=== PATIENT | female | born 1985 | race American Indian/Alaskan Native ===

== ENCOUNTER 2017-01-16 01:03 | Emergency (ER) | payer OTHER ==
--- NOTE | 2017-01-16 03:24 | Emergency Department Report ---
HPI - General Chief Complaint: Dental/Oral Time Seen by Provider: 01/16/17 03:13 - HPI HPI: Patient here reported that she's having toothache to left upper tooth at the back. It she said it started today and pain is 10 out of 10 and aching. She denies any fever or chills. Denies any swelling to face. Denies any nausea vomiting. ED Past Medical Hx - Past Medical History Previous Medical History?: No - Surgical History Past Surgical History?: No - Family History Family history: no significant - Social History Smoking Status: Current Every Day Smoker Substance Use Type: None - Medications Home Medications: Home Medications Medication Instructions Recorded Confirmed Last Taken Type Cyclobenzaprine HCl [Flexeril 5 MG 5 mg PO TID #15 tab 08/30/15 Unknown Rx TAB] traMADol [Ultram 50 MG tab] 50 mg PO Q6HR PRN #15 tablet 08/30/15 Unknown Rx Brompheniramine/Pseudoephed/Dm 5 ml PO Q12HR PRN #60 ml 01/14/16 Unknown Rx [Bromfed Dm Cough Syrup] Ibuprofen [Motrin 600 MG tab] 600 mg PO Q8H PRN #30 tablet 01/14/16 Unknown Rx Acetamin/Codeine 120-12Mg/5 ml 10 ml PO TID PRN #150 ml 01/16/17 Unknown Rx [Tylenol/Codeine] Amoxicillin [Amoxicillin 400 MG/5 12.5 ml PO BID #250 ml 01/16/17 Unknown Rx ML] Ibuprofen [Motrin] 600 mg PO Q8H PRN #21 tablet 01/16/17 Unknown Rx ED Review of Systems ROS: Stated complaint: TOOTHACHE, SORE THROAT Other details as noted in HPI Comment: All other systems reviewed and negative Constitutional: denies: chills, fever Eyes: denies: eye pain ENT: dental pain. denies: ear pain, throat pain, congestion Respiratory: no symptoms reported Cardiovascular: denies: chest pain, palpitations, edema, syncope Gastrointestinal: denies: nausea, vomiting Musculoskeletal: denies: arthralgia Skin: denies: rash Neurological: denies: headache, vertigo Physical Exam - Physical Exam Vital Signs: Vital Signs 01/16/17 01/16/17 01:51 01:59 Temperature 99.8 F H 99.8 F H Pulse Rate 96 H 96 H Respiratory 20 20 Rate Blood Pressure 122/57 Blood Pressure 122/57 [Right] O2 Sat by Pulse 100 100 Oximetry General: This is a 31-year-old female well-nourished well-developed in no acute distress. Physical Exam: Head: [Normocephalic atraumatic Mouth: Moist, no pharyngeal exudate or erythema. Uvula is midline and oral airway is patent. No gingival enlargement or dental tenderness. No facial swelling. No peritonsillar abscesses. Noted broken Tooth #3 without any palpable exposure. No cellulitis noted. no Induration noted. Neck: Supple, no C-spine tenderness, no tracheal deviation. Nontender to palpate. no adenopathy Ears: Bilateral TMs pearly lee.bilateral EAC without any redness swelling or drainage Eyes: Bilateral pupils equal and reactive to light, bilateral EOM intact. Bilateral sclera and conjunctiva without injection. Normal accommodation Nose: Mucosa moist, normal mucosa .maxillary and frontal sinus non-tender to palpate. Lungs: clear to auscultate bilaterally no rhonchi wheezes or rales. Normal work of breathing extremity; No CCE. +2 pulses. No neurovascular compromise Cardiovascular: S1-S2, regular rate rhythm. No murmurs. Skin: clean Dry and intact no rash no lesions Psych: Normal mood and behavior ED Course Vital Signs 01/16/17 01/16/17 01:51 01:59 Temperature 99.8 F H 99.8 F H Pulse Rate 96 H 96 H Respiratory 20 20 Rate Blood Pressure 122/57 Blood Pressure 122/57 [Right] O2 Sat by Pulse 100 100 Oximetry - Reevaluation(s) Reevaluation #1: 01/16/17 04:31 Patient given Adkins 5/325 mg 2 tablets in emergency room for toothache. She says she could not swallow tablets pills were crushed. We'll give patient antibiotic in liquid form and pain medication in liquid form for discharge ED Medical Decision Making - Medical Decision Making ED course: Patient with toothache. She was treated with Adkins 5/325 mg 2 tablets by mouth in emergency room patient has to be crushed. Patient instructed on tooth ache and dental caries and that she will need to follow-up with a dentist to call tomorrow morning to schedule appointment. Patient referred to [facility] dental clinic. Patient voiced understanding of discharge instruction and was discharged home with prescription for Tylenol with codeine and amoxicillin liquid. Critical care attestation.: If time is entered above; I have spent that time in minutes in the direct care of this critically ill patient, excluding procedure time. ED Disposition Clinical Impression: Dental caries, Toothache Fracture, tooth Qualifiers: Encounter type: initial encounter Fracture type: closed Qualified Code(s): S02.5XXA - Fracture of tooth (traumatic), initial encounter for closed fracture Disposition: DISCHARGED TO HOME OR SELFCARE Is pt being admited?: No Does the pt Need Aspirin: No Condition: Stable Instructions: Dental Caries (ED), Toothache (ED) Additional Instructions: He is to not drive or operate heavy machinery while taking Tylenol with Codeine as this will cause drowsiness. Prescriptions: Acetamin/Codeine 120-12Mg/5 ml [Tylenol/Codeine] 10 ml PO TID PRN #150 ml PRN Reason: Toothache Amoxicillin [Amoxicillin 400 MG/5 ML] 12.5 ml PO BID #250 ml Ibuprofen [Motrin] 600 mg PO Q8H PRN #21 tablet PRN Reason: Pain Referrals: [facility] [Outside] - 2-3 Days Forms: Work/School Release Form(ED)
[2017-01-16] MEDS ORDERED: NORCO 5/325 PO ONE (03:25)
[2017-01-16 05:01] VITALS: BP 116/76
== END 2017-01-16 05:02 | disposition home or self-care (01) ==
LOC: ED 01:03
DX: S02.5XXA Fracture of tooth (traumatic), initial encounter for closed fracture (principal); K02.9 Dental caries, unspecified; F17.200 Nicotine dependence, unspecified, uncomplicated; X58.XXXA Exposure to other specified factors, initial encounter; Y93.89 Activity, other specified; Y99.8 Other external cause status; Y92.89 Other specified places as the place of occurrence of the external cause
CPT/HCPCS: 99282

== ENCOUNTER 2017-05-15 23:46 | Emergency (ER) | payer SELFPAY ==
--- NOTE | 2017-05-16 06:33 | Emergency Department Report ---
ED Rash HPI - HPI Chief Complaint: Allergic Reaction Stated Complaint: RASH/ARMS AND BACK Time Seen by Provider: 05/16/17 05:51 Duration: Today Location: Upper Extremities, Lower Extremities Suspected Cause: Insect Rash Symptoms: Yes Itching, No Facial Swelling, No Tongue/Oral Swelling, No Breathing Difficulties, No Choking Sensation, No Wheezing/Dyspnea, No Peeling, No Blistering, No Fever, No Lightheaded, No Malaise, No Myalgias Severity: mild Other History: 31-year-old female significant past medical history presents with complaint of bug bites to skin on arms and legs. Slightly itchy and uncomfortable on palpation. No fevers no chills shortness of breath no wheezing. Visible bites on arms and legs. 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 ED Review of Systems ROS: Stated complaint: RASH/ARMS AND BACK Other details as noted in HPI Constitutional: denies: chills, fever Eyes: denies: eye pain, eye discharge, vision change ENT: denies: ear pain, throat pain Respiratory: denies: cough, shortness of breath, wheezing Cardiovascular: denies: chest pain, palpitations Endocrine: no symptoms reported Gastrointestinal: denies: abdominal pain, nausea, diarrhea Genitourinary: denies: urgency, dysuria, discharge Musculoskeletal: denies: back pain, joint swelling, arthralgia Skin: denies: rash, lesions Neurological: denies: headache, weakness, paresthesias Psychiatric: denies: anxiety, depression Hematological/Lymphatic: denies: easy bleeding, easy bruising ED Past Medical Hx - Past Medical History Previous Medical History?: No Hx Hypertension: No Hx CVA: No Hx Heart Attack/AMI: No Hx Congestive Heart Failure: No Hx Diabetes: No Hx Deep Vein Thrombosis: No Hx Pulmonary Embolism: No Hx GERD: No Hx Liver Disease: No Hx Renal Disease: No Hx of Cancer: No Hx Sickle Cell Disease: No Hx Arthritis: No Hx Headaches / Migraines: No Hx Seizures: No Hx Kidney Stones: No Hx Psychiatric Treatment: No Hx Asthma: No Hx COPD: No Hx Tuberculosis: No Hx Dementia: No Hx HIV: No - Surgical History Past Surgical History?: No Hx Coronary Stent: No Hx Open Heart Surgery: No Hx Pacemaker: No Hx Internal Defibrillator: No Hx Cholecystectomy: No Hx Appendectomy: No Hx Breast Surgery: No - Social History Smoking Status: Current Every Day Smoker Substance Use Type: None - Medications Home Medications: Home Medications Medication Instructions Recorded Confirmed Last Taken Type Ondansetron [Zofran Odt] 4 mg PO TID #15 tab.rapdis 02/02/17 Unknown Rx Hydrocortisone 1% [Hydrocortisone 1 applicatio TP TID PRN #1 tube 05/16/17 Unknown Rx 1% CREAM] Ibuprofen [Motrin] 600 mg PO Q8H PRN #15 tablet 05/16/17 Unknown Rx diphenhydrAMINE [Benadryl CAP] 25 mg PO Q8HR PRN #20 capsule 05/16/17 Unknown Rx Rash Exam - Exam General: Vital signs noted. No distress. Alert and acting appropriately. HEENT: No Periorbital Edema, No Conjuctival Injection, No Chemosis, No Perioral Edema, No Tongue Edema, No Uvular Edema, No Compromised Airway, No Drooling Lungs: Yes Good Air Exchange (Normal Breath Sounds), No Wheezes, No Ronchi, No Stridor, No Cough, No Labored Respirations, No Retractions, No Use of Accessory Muscles, No Other Abnormal Lung Sounds Heart: Yes Regular, No Murmur Skin: Yes Maculopapular Rash (visible bug bites on arms and legs) Other: Positive: Abdomen Normal, Neurologic Normal, Musculoskeletal Normal ED Course Vital Signs 05/16/17 01:28 Temperature 97.4 F L Pulse Rate 88 Respiratory 16 Rate Blood Pressure 120/78 O2 Sat by Pulse 100 Oximetry ED Medical Decision Making - Medical Decision Making A/P: Insect bites 1-hydrocortisone cream to affected areas 2-Motrin and Benadryl when necessary 3-I educated patient on signs and symptoms of bedbug infestation and bedbug bites. 4-no signs of severe allergic reaction on clinical exam Critical care attestation.: If time is entered above; I have spent that time in minutes in the direct care of this critically ill patient, excluding procedure time. ED Disposition Clinical Impression: Bug bites Qualifiers: Encounter type: initial encounter Qualified Code(s): W57.XXXA - Bitten or stung by nonvenomous insect and other nonvenomous arthropods, initial encounter Disposition: TO HOME OR SELFCARE Is pt being admited?: No Does the pt Need Aspirin: No Condition: Stable Instructions: Insect Bite or Sting (ED) Prescriptions: diphenhydrAMINE [Benadryl CAP] 25 mg PO Q8HR PRN #20 capsule PRN Reason: Itching Hydrocortisone 1% [Hydrocortisone 1% CREAM] 1 applicatio TP TID PRN #1 tube PRN Reason: Itching Ibuprofen [Motrin] 600 mg PO Q8H PRN #15 tablet PRN Reason: Pain Referrals: [facility] [Outside] - 3-5 Days Forms: Accompanied Note, Work/School Release Form(ED) Time of Disposition: 06:27
[2017-05-16 06:42] VITALS: BP 103/78
== END 2017-05-16 06:42 | disposition home or self-care (01) ==
LOC: ED 23:46
DX: S80.862A Insect bite (nonvenomous), left lower leg, initial encounter (principal); S80.861A Insect bite (nonvenomous), right lower leg, initial encounter; S40.861A Insect bite (nonvenomous) of right upper arm, initial encounter; S40.862A Insect bite (nonvenomous) of left upper arm, initial encounter; F17.200 Nicotine dependence, unspecified, uncomplicated; W57.XXXA Bitten or stung by nonvenomous insect and other nonvenomous arthropods, initial encounter; Y93.89 Activity, other specified; Y99.8 Other external cause status; Y92.89 Other specified places as the place of occurrence of the external cause
CPT/HCPCS: 99282

== ENCOUNTER 2022-07-23 09:06 | Emergency (ER) | payer SELFPAY ==
[2022-07-23 09:30] VITALS: BP 129/80
--- NOTE | 2022-07-23 09:53 | Emergency Department Report ---
ED Extremity Problem HPI - General Chief complaint: Back Pain/Injury Stated complaint: BACK PAIN Source: patient Mode of arrival: Ambulatory Limitations: No Limitations - History of Present Illness Initial comments: 36-year-old female presents to the ED complaining of right shoulder pain. Patient states that she works and she constantly has to use her arms to move back and forth and lift objects. Patient has no obvious deformity noted or no distracting injury noted. Patient denies any numbness or tingling. Patient has no obvious trauma noted. Patient is alert and oriented x3. No acute distress noted. No ill appearance noted. MD Complaint: extremity pain Onset/Timin -: days(s) Location: right, upper extremity History of Same: No Severity scale (0 -10): 8 Quality: aching Consistency: intermittent Worsens with: nothing Associated Symptoms: denies other symptoms - Related Data Previous Rx's Medication Instructions Recorded Last Taken Type Ondansetron [Zofran Odt] 4 mg PO TID #15 tab.rapdis 02/02/17 Unknown Rx Hydrocortisone 1% [Hydrocortisone 1 applicatio TP TID PRN #1 tube 05/16/17 Unknown Rx 1% CREAM] Ibuprofen [Motrin] 600 mg PO Q8H PRN #15 tablet 05/16/17 Unknown Rx diphenhydrAMINE [Benadryl CAP] 25 mg PO Q8HR PRN #20 capsule 05/16/17 Unknown Rx Ketorolac [Toradol] 10 mg PO Q6H PRN 5 Days #20 tab 07/23/22 Unknown Rx methOCARBAMOL [Robaxin TAB] 750 mg PO Q8H PRN 15 Days #30 tab 07/23/22 Unknown Rx predniSONE [Deltasone] 50 mg PO QDAY 3 Days #3 tab 07/23/22 Unknown Rx Allergies Allergy/AdvReac Type Severity Reaction Status Date / Time No Known Allergies Allergy Verified 07/23/22 09:28 ED Review of Systems ROS: Stated complaint: BACK PAIN Other details as noted in HPI Constitutional: denies: chills, fever Eyes: denies: eye pain, eye discharge, vision change ENT: denies: ear pain, throat pain Respiratory: denies: cough, shortness of breath, wheezing Cardiovascular: denies: chest pain, palpitations Endocrine: no symptoms reported Gastrointestinal: denies: abdominal pain, nausea, diarrhea Genitourinary: denies: urgency, dysuria, discharge Musculoskeletal: denies: back pain, joint swelling, arthralgia Skin: denies: rash, lesions Neurological: denies: headache, weakness, paresthesias Psychiatric: denies: anxiety, depression Hematological/Lymphatic: denies: easy bleeding, easy bruising ED Past Medical Hx - Past Medical History Hx Hypertension: No Hx CVA: No Hx Heart Attack/AMI: No Hx Congestive Heart Failure: No Hx Diabetes: No Hx Deep Vein Thrombosis: No Hx Pulmonary Embolism: No Hx GERD: No Hx Liver Disease: No Hx Renal Disease: No Hx Sickle Cell Disease: No Hx Arthritis: No Hx Headaches / Migraines: No Hx Seizures: No Hx Kidney Stones: No Hx Psychiatric Treatment: No Hx Asthma: No Hx COPD: No Hx Tuberculosis: No Hx Dementia: No Hx HIV: No - Surgical History Hx Coronary Stent: No Hx Open Heart Surgery: No Hx Pacemaker: No Hx Internal Defibrillator: No Hx Cholecystectomy: No Hx Appendectomy: No Hx Breast Surgery: No - Social History Smoking Status: Current Every Day Smoker Substance Use Type: None - Medications Home Medications: Home Medications Medication Instructions Recorded Confirmed Last Taken Type Ondansetron [Zofran Odt] 4 mg PO TID #15 tab.rapdis 02/02/17 Unknown Rx Hydrocortisone 1% [Hydrocortisone 1 applicatio TP TID PRN #1 tube 05/16/17 Unknown Rx 1% CREAM] Ibuprofen [Motrin] 600 mg PO Q8H PRN #15 tablet 05/16/17 Unknown Rx diphenhydrAMINE [Benadryl CAP] 25 mg PO Q8HR PRN #20 capsule 05/16/17 Unknown Rx Ketorolac [Toradol] 10 mg PO Q6H PRN 5 Days #20 tab 07/23/22 Unknown Rx methOCARBAMOL [Robaxin TAB] 750 mg PO Q8H PRN 15 Days #30 tab 07/23/22 Unknown Rx predniSONE [Deltasone] 50 mg PO QDAY 3 Days #3 tab 07/23/22 Unknown Rx ED Physical Exam - General Limitations: No Limitations General appearance: alert, in no apparent distress - Head Head exam: Present: atraumatic, normocephalic - Eye Eye exam: Present: normal appearance - ENT ENT exam: Present: mucous membranes moist - Neck Neck exam: Present: normal inspection - Respiratory Respiratory exam: Present: normal lung sounds bilaterally. Absent: respiratory distress - Cardiovascular Cardiovascular Exam: Present: regular rate, normal rhythm. Absent: systolic murmur, diastolic murmur, rubs, gallop - GI/Abdominal GI/Abdominal exam: Present: soft, normal bowel sounds - Extremities Exam Extremities exam: Present: normal inspection - Back Exam Back exam: Present: normal inspection - Neurological Exam Neurological exam: Present: alert, oriented X3 - Psychiatric Psychiatric exam: Present: normal affect, normal mood - Skin Skin exam: Present: warm, dry, intact, normal color. Absent: rash ED Course Vital Signs 07/23/22 09:24 Temperature 98.2 F Pulse Rate 80 Respiratory 18 Rate Blood Pressure 129/80 [Right] O2 Sat by Pulse 99 Oximetry ED Medical Decision Making - Medical Decision Making 36-year-old female presents to the ED complaining of right shoulder pain. Patient states that she works and she constantly has to use her arms to move back and forth and lift objects. Patient has no obvious deformity noted or no distracting injury noted. Patient denies any numbness or tingling. Patient has no obvious trauma noted. Patient is alert and oriented x3. No acute distress noted. No ill appearance noted. Rechecked the patient is resting quietly , comfortable and feeling better. I discussed the results of diagnostic study, my clinical impression and the plan for further treatment with the patient. Patient agrees with plan and discharge at this present time. All question addressed. I have given the patient instruction regarding a diagnosis ,expectation ,follow- up and return precaution. I explained to the patient that emergent condition may arise and to return to the ED for new worsen and any new persisting condition. I have explained the importance of following up with the primary care physician or referral physician listed below has instructed. The patient verbalized understanding of discharge instruction. Critical care attestation.: If time is entered above; I have spent that time in minutes in the direct care of this critically ill patient, excluding procedure time. ED Disposition Clinical Impression: Right shoulder pain Qualifiers: Chronicity: acute Qualified Code(s): M25.511 - Pain in right shoulder Disposition: HOME / SELF CARE / HOMELESS Is pt being admited?: No Does the pt Need Aspirin: No Condition: Stable Instructions: How to Use Cold Therapy, [id number], Shoulder Pain, [id number] Additional Instructions: Take medication as prescribed return to ED for any worsening symptom Prescriptions: predniSONE [Deltasone] 50 mg PO QDAY 3 Days #3 tab methOCARBAMOL [Robaxin TAB] 750 mg PO Q8H PRN 15 Days #30 tab PRN Reason: Muscle Spasm Ketorolac [Toradol] 10 mg PO Q6H PRN 5 Days #20 tab PRN Reason: Pain Referrals: [facility] [Provider Group] - 3-5 Days Forms: Work/School Release Form(ED) Time of Disposition: 09:53
== END 2022-07-23 10:11 | disposition home or self-care (01) ==
LOC: ED 09:06
DX: M25.511 Pain in right shoulder (principal); F17.200 Nicotine dependence, unspecified, uncomplicated; Z79.899 Other long term (current) drug therapy
CPT/HCPCS: 99282